=== PATIENT | female | born 1995 | race Caucasian/White ===

== ENCOUNTER 2021-05-21 17:40 | Emergency (ER) | payer OTHER, SELFPAY ==
[2021-05-21 17:53] VITALS: BP 127/94; PULSE 108; RESP 18; TEMP 36.6; O2SAT 100
[2021-05-21] MEDS: TETANUS,DIPHTHERIA,AC PERTUSSIS ADULT (0.5 ML) BOOSTRIX IM (18:08)
--- NOTE | 2021-05-21 18:21 | ED.WOUNDLAC ---
HPI - Wound/Laceration General Chief Complaint: Wound/Laceration Stated Complaint: Right Hand Thumb Laceration Time Seen by Provider: 05/21/21 18:28 Source: patient and RN notes reviewed Mode of arrival: ambulatory Limitations: no limitations History of Present Illness HPI narrative: 25-year-old female presents with concern for laceration to the first digit of the right hand. Reports using a mandolin prior to arrival she sliced the finger. She is up-to-date on her tetanus shot. She reports the laceration involves the fingernail. She denies decrease strength, sensation to the digit. Related Data Home Medications Medication Instructions Recorded Confirmed No Home Medications 05/21/21 05/21/21 Allergies Allergy/AdvReac Type Severity Reaction Status Date / Time morphine Allergy Mild HIVES Verified 05/21/21 17:43 Review of Systems Review of Systems: CONSTITUTIONAL: Denies malaise, chills, sweats, or fever. SKIN: Reports laceration to the first digit of the right hand MUSCULOSKELETAL: Denies muscle skeletal pain, decreased range, sensation NEUROLOGIC: Denies numbness, weakness All systems reviewed & are unremarkable except as noted in HPI and below PMFSH Past Medical History Medical History (Updated 05/21/21 @ 18:42 by Lyndsay Guo NP) Depression Surgical History Surgical History (Updated 08/29/19 @ 09:50 by Bridget Jennings NP) H/O shoulder surgery History of tonsillectomy and adenoidectomy Hx of cholecystectomy Social History Social History (Updated 08/29/19 @ 09:47 by Bridget Jennings NP) Smoking status: Never smoker Comments At time of signature, agree with nursing past medical, surgical, social and family history. There is no relevant family history pertinent to the presenting complaint Exam Narrative: GENERAL: Well-appearing, well-nourished, and in no acute distress. HEAD: Normocephalic EYES: PERRLA, conjunctivae clear NECK: Supple. CHEST: Speaks in full sentences. No respiratory distress. HEART: Regular rate and rhythm. Normal and equal peripheral pulses. EXTREMITIES: First digit of right hand has normal strength and sensation. 5/5 strength with digit flexion, extension. Range of motion normal. No clubbing, cyanosis, or edema noted. No musculoskeletal tenderness. Normal digital cascade with flexion of fingers, median, ulnar and radial nerve intact. Normal sensation of each side of finger. Can perform 'okay' sign, 'cross over finger test of index and middle fingers' and 'thumbs up' sign. No scissoring. Normal thumb opposition. Good capillary refill and radial pulse. Distal capillary refill less than 3 seconds. SKIN: Warn, dry, intact, pink. 2 cm flap laceration noted to the first digit of the right hand, involving the nailbed NEURO: Alert and oriented x3. PSYCH: Normal mood and affect Course Course Emergency Course: Patient is aware of diagnosis, understands and agrees to treatment plan. Anticipatory guidance given. Patient agrees to follow-up as directed and is aware of reasons to seek care at the emergency department. Portions of this record may have been created with voice recognition software Vital Signs Vital signs: Vital Signs Temperature 97.9 F 05/21/21 17:53 Pulse Rate 108 H 05/21/21 17:53 Respiratory Rate 18 05/21/21 17:53 Blood Pressure 127/94 H 05/21/21 17:53 Pulse Oximetry 100 05/21/21 17:53 Temperature 97.9 F 05/21/21 17:53 Pulse Rate 108 H 05/21/21 17:53 Respiratory Rate 18 05/21/21 17:53 Blood Pressure 127/94 H 05/21/21 17:53 Pulse Oximetry 100 05/21/21 17:53 Reviewed. Procedures Laceration Laceration 1: Date: 05/21/21 Time: 18:45 Site: hand Side (If applicable): right Size (cm): 2 Description: flap Depth: simple, single layer Local Anesthetic: lidocaine 1% Amount of anesthesia used (mL): 3 Pre-repair: wound explored and irrigated ====== Skin Level ======
== END 2021-05-21 19:28 | disposition home or self-care (01) ==
PROVIDERS: Emergency Provider Nurse Practitioner
DX: S61.111A Laceration without foreign body of right thumb with damage to nail, initial encounter (principal); W27.8XXA Contact with other nonpowered hand tool, initial encounter; Z23 Encounter for immunization
CPT/HCPCS: 12001; 90471; 90715; 99212; G0463